=== PATIENT | male | born 1965 | race American Indian/Alaskan Native ===

== ENCOUNTER 2017-11-26 09:08 | Day surgery (SDC) | payer MEDICARE ==
[~2017-11-26 09:08] MED LIST: ANCEF/STERILE WATER 2 GM/20 ML IV NR; OMNIPAQUE (300 MG) IR ONE; WATER FOR IRRIG STERILE IR ONE
[2017-11-26] MEDS ORDERED: NACL BACTERIOSTATIC INFILTRATI ONE (09:58)
[2017-11-26] MEDS ORDERED: DIPRIVAN 10 MG/ML IV ONE (10:37)
[2017-11-26] MEDS ORDERED: XYLOCAINE MPF 2% ONE (10:39)
[2017-11-26] MEDS ORDERED: DILAUDID IV PRN (10:46)
--- NOTE | 2017-11-26 10:49 | Anesthesia Consultation ---
Anesthesia Consult and Med Hx Date of service: 11/26/17 - Airway Anesthetic Teeth Evaluation: Good Mental/Hyoid Distance: Adequate Mallampati Class: Class II Intubation Access Assessment: Probably Good - Pulmonary Exam CTA: Yes - Cardiac Exam Cardiac Exam: RRR - Pre-Operative Health Status ASA Pre-Surgery Classification: ASA2 Proposed Anesthetic Plan: General - Pulmonary Hx Smoking: Yes (STOPPED 09/30/17 , 1/2 PPD X 20 YRS) Hx Asthma: No SOB: No COPD: No Hx Pneumonia: No Hx Sleep Apnea: No (VIKY PRE SCREEN HIGH RISK.) - Cardiovascular System Hx Hypertension: Yes (X 3 YRS) Hx Coronary Artery Disease: Yes Hx Cardia Arrhythmia: Yes (A. Fib - resolved) Hx Valvular Heart Disease: Yes - Central Nervous System CVA: No Hx Psychiatric Problems: No - Gastrointestinal Hx Gastroesophageal Reflux Disease: No - Endocrine Hx Renal Disease: No (Penile implant) Hx End Stage Renal Disease: No Hx Insulin Dependent Diabetes: No Hx Non-Insulin Dependent Diabetes: No - Hematic Hx Anemia: No - Other Systems Hx Alcohol Use: Yes (OCCASIONAL) Hx Substance Use: No Hx Cancer: Yes (Prostate s/p seed implant and radiation) Hx Obesity: No
--- NOTE | 2017-11-26 10:50 | Anesthesia Day of Surgery ---
Anesthesia Day of Surgery - Day of Surgery Patient Examined: Yes Patient H&P Reviewed: Yes Patient is NPO: Yes Beta Blockers: Yes (carvedilol 4/9 am)
[2017-11-26] MEDS ORDERED: VERSED IV NR (11:00)
[2017-11-26] MEDS ORDERED: PEPCID IV NR (11:00)
[2017-11-26] MEDS ORDERED: OMNIPAQUE (300 MG) IR ONE (11:00)
[2017-11-26] MEDS ORDERED: NACL 0.9% 1000 ML 1,000 ML IV SCH ×2 (11:00)
[2017-11-26] MEDS ORDERED: WATER FOR IRRIG STERILE IR ONE (11:00)
[2017-11-26] MEDS ORDERED: DECADRON ONE (11:31)
[2017-11-26] MEDS ORDERED: ZOFRAN ONE (11:32)
[2017-11-26] MEDS ORDERED: SUBLIMAZE ONE (11:37)
--- NOTE | 2017-11-26 12:01 | Short Stay Summary ---
Short Stay Documentation Date of service: 11/26/17 - History H&P: obtained from office - Allergies and Medications Current Medications: Allergies No Known Allergies Allergy (Verified 05/25/14 11:48) Home Medications Medication Instructions Recorded Confirmed Last Taken Type Metoprolol 25 mg PO DAILY 12/15/14 11/26/17 11/26/17 08:00 History Active Medications Cefazolin Sodium (Ancef/Sterile Water 2 Gm/20 Ml) 2 gm IV PREOP NR Stop: 11/26/17 23:59 Famotidine (Pepcid) 20 mg IV PREOP NR Stop: 11/26/17 12:00 Last Admin: 11/26/17 10:55 Dose: 20 mg Hydromorphone HCl (Dilaudid) 0.25 mg IV Q10MIN PRN PRN Reason: Pain, Moderate (4-6) Stop: 11/26/17 12:00 Sodium Chloride (Nacl 0.9% 1000 Ml) 1,000 mls @ 100 mls/hr IV DIRECT ZACHARIAH Last Admin: 11/26/17 10:45 Dose: 100 mls/hr Midazolam HCl (Versed) 2 mg IV PREOP NR Stop: 11/26/17 23:59 Last Admin: 11/26/17 11:00 Dose: 2 mg - Brief post op/procedure progress note Date of procedure: 11/26/17 Pre-op diagnosis: bladder stones 4cm total Post-op diagnosis: same Procedure: cysto, rpg, ehl bladder stones Anesthesia: GETA Surgeon: RASHIDA BURDICK Pathology: list (give stones to pt) Condition: stable - Hospital course Hospital course: miles bain on chart--give stone to pt(tube) - Disposition Condition at discharge: Stable Disposition: DC-01 TO HOME OR SELFCARE Short Stay Discharge Plan Follow up with: SINDY THACKER MD [Primary Care Provider] - 7 Days
[2017-11-26] MEDS ORDERED: NORCO 5/325 PO PRN (12:30)
--- NOTE | 2017-11-26 12:30 | Operative Report ---
PREOPERATIVE DIAGNOSIS: Two large bladder stones, 2 cm right renal stone upper pole (staged). POSTOPERATIVE DIAGNOSIS: Two large bladder stones, 2 cm right renal stone upper pole (staged). PROCEDURE: Cystoscopy, bilateral retrograde pyelograms, electrohydraulic lithotripsy of bladder stones, (total volume 4 cm). SURGEON: Monico Guzman MD ANESTHESIA: General. ESTIMATED BLOOD LOSS: Minimal. FLUIDS: Crystalloid. COMPLICATIONS: No complications. INDICATIONS: This patient is a 52-year-old gentleman known to my service. History of prostate cancer, status post seed therapy as well as the erectile dysfunction, status post inflatable penile prosthesis, had gross hematuria, pelvic pain. CT of abdomen and pelvis revealed bladder stones as well as right renal stone, which is asymptomatic. He presents now for lithotripsy and possible ureteroscopy. DESCRIPTION OF PROCEDURE: The patient was taken to the operative suite, placed in a supine position. After adequate general anesthesia, placed in a dorsal lithotomy position, prepped and draped in a sterile fashion. Pancystourethroscopy was performed with a 22-Lebanese Storz cystoscope, no urethral abnormalities. His prostate had a high median lobe bladder obvious stones could be appreciated, no tumors. Both ureteral orifices in normal position. There was external compression from his penile prosthesis reservoir on the right side. Bilateral retrograde pyelograms were obtained with an 8-Lebanese Winn catheter and 8 mL of contrast. No filling defects or obstruction on the left. Right side, obvious 2 cm stone and the upper pole appears to be possible diverticulum. Using a 5-Lebanese EHL probe lithotripsy was performed. Stone was fragmented. [facility] evacuator was used to evacuate the fragments out. I did not do an ureteroscope on the right side, was concerned about damage to the reservoir. We will elect to do staged lithotripsy at a later date. Rectal exam was benign. He was extubated and taken to recovery room in stable condition. We will give him some of the fragments, go home on [employer] and [employer]. JOB# [id number] [facility]
[2017-11-26 14:50] VITALS: BP 126/80
--- NOTE | 2017-11-27 07:39 | Fluoroscopy Report ---
Retrograde pyelogram: Renal, bladder calculi The preliminary stone image demonstrates prostate brachy therapy seeds. There is a round opacity overlying the left kidney. Injection of contrast demonstrates 2 filling defects within the partially opacified urinary bladder. The contrast filled left urinary tract is generally unremarkable. Imaging of the right urinary tract demonstrates that the opacity initially imaged projects between the upper and middle pole calyces and appears to consist of numerous small calculi in a rounded configuration. Impressions: 1. Bladder calculi. 2. Probable gallstones.
== END 2017-11-26 14:35 | disposition home or self-care (01) ==
LOC: OR 09:08
PROVIDERS: ATTEND Urology
DX: N21.0 Calculus in bladder (principal); N20.0 Calculus of kidney; I10 Essential (primary) hypertension; I25.10 Atherosclerotic heart disease of native coronary artery without angina pectoris; I48.91 Unspecified atrial fibrillation; Z87.891 Personal history of nicotine dependence
CPT/HCPCS: 52318; 74420; A4217; C1726; C1758; C1769; J0690; J1100; J2250; J2405; J2704; J3010; J7030; Q9967

== ENCOUNTER 2017-12-27 08:16 | Day surgery (SDC) | payer MEDICARE ==
[~2017-12-27 08:16] MED LIST changes: -OMNIPAQUE (300 MG) IR ONE; -WATER FOR IRRIG STERILE IR ONE
[2017-12-27] MEDS ORDERED: NACL BACTERIOSTATIC INFILTRATI ONE (08:48)
--- NOTE | 2017-12-27 09:15 | Anesthesia Day of Surgery ---
Anesthesia Day of Surgery - Day of Surgery Patient Examined: Yes Patient H&P Reviewed: Yes Patient is NPO: Yes Beta Blockers: Yes
--- NOTE | 2017-12-27 09:15 | Anesthesia Consultation ---
Anesthesia Consult and Med Hx - Airway Anesthetic Teeth Evaluation: Good ROM Head & Neck: Adequate Mental/Hyoid Distance: Adequate Mallampati Class: Class II Intubation Access Assessment: Good - Pulmonary Exam CTA: Yes - Cardiac Exam Cardiac Exam: RRR - Pre-Operative Health Status ASA Pre-Surgery Classification: ASA2 Proposed Anesthetic Plan: General - Pulmonary Hx Smoking: Yes (STOPPED 09/30/17 , /2 PPD X 20 YRS) Hx Asthma: No SOB: No COPD: No Hx Pneumonia: No Hx Sleep Apnea: No (VIKY PRE SCREEN HIGH RISK.) - Cardiovascular System Hx Hypertension: Yes (X 3 YRS) Hx Coronary Artery Disease: Yes Hx Cardia Arrhythmia: Yes (A. Fib - resolved) Hx Valvular Heart Disease: Yes - Central Nervous System CVA: No Hx Psychiatric Problems: No - Gastrointestinal Hx Gastroesophageal Reflux Disease: No - Endocrine Hx End Stage Renal Disease: No Hx Insulin Dependent Diabetes: No Hx Non-Insulin Dependent Diabetes: No - Hematic Hx Anemia: No - Other Systems Hx Alcohol Use: Yes (OCCASIONAL) Hx Substance Use: No Hx Obesity: No
[2017-12-27] MEDS ORDERED: XYLOCAINE MPF 2% ONE (09:21)
[2017-12-27] MEDS ORDERED: DIPRIVAN 10 MG/ML IV ONE (09:21)
[2017-12-27] MEDS ORDERED: SUBLIMAZE ONE (09:21)
[2017-12-27] MEDS ORDERED: DILAUDID IV PRN (09:30)
[2017-12-27] MEDS ORDERED: LACTATED RINGERS 1,000 ML IV SCH (09:30)
[2017-12-27] MEDS ORDERED: SUBLIMAZE IV PRN (09:30)
[2017-12-27] MEDS ORDERED: ZOFRAN IV PRN (09:30)
[2017-12-27] MEDS ORDERED: ePHEDrine SULFATE ONE (09:46)
[2017-12-27] MEDS ORDERED: ZOFRAN ONE (10:12)
[2017-12-27] MEDS ORDERED: ROBINUL ONE (10:15)
--- NOTE | 2017-12-27 10:16 | Short Stay Summary ---
Short Stay Documentation Date of service: 12/27/17 - Allergies and Medications Current Medications: Allergies No Known Allergies Allergy (Verified 05/25/14 11:48) Home Medications Medication Instructions Recorded Confirmed Last Taken Type Metoprolol 25 mg PO DAILY 12/15/14 12/27/17 12/27/17 05:00 History Ciprofloxacin HCl [Cipro] 500 mg PO BID 12/19/17 12/27/17 12/26/17 History oxyCODONE /ACETAMINOPHEN [Percocet 1 tab PO Q6HR PRN 12/19/17 12/27/17 12/26/17 History 5/325] Active Medications Cefazolin Sodium (Ancef/Sterile Water 2 Gm/20 Ml) 2 gm IV PREOP NR Stop: 12/27/17 23:59 Fentanyl (Sublimaze) 50 mcg IV Q5MIN PRN PRN Reason: Pain , Severe (7-10) Stop: 12/27/17 13:30 Hydromorphone HCl (Dilaudid) 0.5 mg IV Q10MIN PRN PRN Reason: Pain, Moderate (4-6) Stop: 12/27/17 13:30 Lactated Ringer's (Lactated Ringers) 1,000 mls @ 42 mls/hr IV DIRECT ZACHARIAH Last Admin: 12/27/17 09:19 Dose: 42 mls/hr Ondansetron HCl (Zofran) 4 mg IV ONCE PRN PRN Reason: Nausea And Vomiting Stop: 12/27/17 15:00 - Brief post op/procedure progress note Date of procedure: 12/27/17 Pre-op diagnosis: rt 2cm stone Post-op diagnosis: same Procedure: rt eswl---staged Anesthesia: GETA Surgeon: RASHIDA BURDICK Condition: stable - Hospital course Hospital course: percocet 10 & post op info on chart - Disposition Condition at discharge: Stable Disposition: DC-01 TO HOME OR SELFCARE Short Stay Discharge Plan Follow up with: SINDY THACKER MD [Primary Care Provider] - 7 Days
--- NOTE | 2017-12-27 11:01 | Operative Report ---
PREOPERATIVE DIAGNOSIS: Right 2 cm stone. POSTOPERATIVE DIAGNOSIS: Right 2 cm stone. PROCEDURE: Right extracorporal shock wave lithotripsy (staged procedure). SURGEON: Monico uGzman MD ANESTHESIA: General. ESTIMATED BLOOD LOSS: Minimal. FLUIDS: Crystalloid. COMPLICATIONS: No complications. INDICATIONS: This 52-year-old gentleman known to my service for prostate cancer as well as stones, presents now for lithotripsy. Discussed more invasive procedures, he wants to proceed with lithotripsy. DESCRIPTION OF PROCEDURE: The patient was taken to the operative suite, placed in a supine position. After adequate general anesthesia, stone was localized in 2 planes using fluoroscopy. Extracorporal shock wave lithotripsy was administered in maximum kV of 5 and 2500 shocks. Renal pause after 200 shocks was performed. The patient required gating due to some ectopy throughout the case. He was stabilized after lithotripsy was done in a gated fashion. Adequate fragmentation could be appreciated, tolerated the procedure well, was extubated and taken to recovery room. He will go home on Percocet and follow up in the office. I suspect he will need a retreatment. JOB# [id number] [facility]
[2017-12-27 11:11] VITALS: BP 124/78
--- NOTE | 2017-12-27 17:30 | Post Anesthesia Evaluation ---
- Post Anesthesia Evaluation Patient Participated: Yes Airway Patent: Yes Stable Respiratory Function: Yes Nausea/Vomiting: No Temp > 96.8F: Yes Pain Manageable: Yes Adequeate Hydration: Yes Anesthesia Complications: No
== END 2017-12-27 12:00 | disposition home or self-care (01) ==
LOC: OR 08:16
PROVIDERS: ATTEND Urology
DX: N20.0 Calculus of kidney (principal); I10 Essential (primary) hypertension; I48.91 Unspecified atrial fibrillation; I25.10 Atherosclerotic heart disease of native coronary artery without angina pectoris; Z87.891 Personal history of nicotine dependence; Z85.46 Personal history of malignant neoplasm of prostate
CPT/HCPCS: 50590; J0690; J2405; J2704; J3010; J7120

== ENCOUNTER 2019-02-26 11:32 | Day surgery (SDC) | payer MEDICARE ==
[2019-02-24 09:57] LABS: Hematocrit 45.2 % (35.5-45.6); Hemoglobin 15.3 gm/dl (11.8-15.2); Mean Corpuscular HGB Conc 34 % (32-34); Mean Corpuscular Hemoglobin 31 pg (28-32); Mean Corpuscular Volume 92 fl (84-94); Platelet Count 219 K/mm3 (140-440); Red Blood Count 4.89 M/mm3 (3.65-5.03); Red Cell Distribution Width 13.9 % (13.2-15.2)
--- NOTE | 2019-02-24 10:00 | Anesthesia Consultation ---
Anesthesia Consult and Med Hx Date of service: 02/26/19 - Airway Anesthetic Teeth Evaluation: Chipped ROM Head & Neck: Adequate Mental/Hyoid Distance: Adequate Mallampati Class: Class II Intubation Access Assessment: Probably Good - Pre-Operative Health Status ASA Pre-Surgery Classification: ASA2 Proposed Anesthetic Plan: General - Pulmonary Hx Smoking: Yes (1/3 PPD X 20-25 YRS) Hx Asthma: No SOB: No COPD: No Hx Pneumonia: No Hx Sleep Apnea: No (VIKY PRE SCREEN HIGH RISK.) - Cardiovascular System Hx Hypertension: Yes (X 4 YRS) Hx Coronary Artery Disease: Yes (ETT [id number] negative for ischemia; +PACs) Hx Heart Attack/AMI: No (HX Cardiomyopathy LVEF 55% on 2012 cath) Hx Cardia Arrhythmia: Yes (A. Fib - resolved) Hx Valvular Heart Disease: Yes - Central Nervous System CVA: No Hx Psychiatric Problems: No - Gastrointestinal Hx Gastroesophageal Reflux Disease: No - Endocrine Hx Insulin Dependent Diabetes: No Hx Non-Insulin Dependent Diabetes: No - Hematic Hx Anemia: No - Other Systems Hx Alcohol Use: Yes (OCCASIONAL) Hx Substance Use: No Hx Obesity: No
[2019-02-24 10:14] LABS: Alanine Aminotransferase 13 units/L (7-56); Albumin 3.5 g/dL (3.9-5); BUN/Creatinine Ratio 14; Blood Urea Nitrogen 13 mg/dL (9-20); Calcium 8.5 mg/dL (8.4-10.2); Hemolysis Index 10
[2019-02-24 11:03] LABS: Total Cells Counted 100
[2019-02-24 11:04] LABS: Eosinophils % (Manual) 0 % (0.0-4.3); Platelet Estimate Consistent w Auto; RBC Morphology Normal
[2019-02-26] MEDS ORDERED: SUBLIMAZE ONE (12:29)
[2019-02-26] MEDS ORDERED: XYLOCAINE MPF 2% ONE (12:29)
[2019-02-26] MEDS ORDERED: DIPRIVAN 10 MG/ML IV ONE (12:30)
[2019-02-26] MEDS ORDERED: VERSED IV ONE (12:32)
[2019-02-26] MEDS ORDERED: LACTATED RINGERS 1,000 ML IV SCH (12:33)
[2019-02-26] MEDS ORDERED: .VANCOMYCIN VIAL ONE (12:56)
[2019-02-26] MEDS ORDERED: HYDROGEN PEROXIDE ONE (12:56)
[2019-02-26] MEDS ORDERED: NEOSPORIN GU IR ONE (12:56)
[2019-02-26] MEDS ORDERED: GENTAMICIN ONE (12:56)
[2019-02-26] MEDS ORDERED: NACL P/F VIAL (10 ML) 10 ML ONE (12:57)
[2019-02-26] MEDS ORDERED: DILAUDID IV PRN (13:05)
--- NOTE | 2019-02-26 13:07 | Anesthesia Day of Surgery ---
Anesthesia Day of Surgery - Day of Surgery Patient Examined: Yes Patient H&P Reviewed: Yes Patient is NPO: Yes
[2019-02-26] MEDS ORDERED: ZOFRAN ONE (13:55)
[2019-02-26] MEDS ORDERED: NACL 0.9% IR ONE (14:06)
[2019-02-26] MEDS ORDERED: NACL P/F VIAL (10 ML) INFILTRATI ONE (14:07)
[2019-02-26] MEDS ORDERED: VANCOMYCIN IV ONE (14:07)
--- NOTE | 2019-02-26 14:35 | Short Stay Summary ---
Short Stay Documentation Date of service: 02/26/19 - History H&P: obtained from office - Allergies and Medications Current Medications: Allergies No Known Allergies Allergy (Verified 05/25/14 11:48) Home Medications Medication Instructions Recorded Confirmed Last Taken Type Metoprolol 25 mg PO DAILY 12/15/14 02/19/19 02/25/19 History Aspirin [Adult Aspirin] 81 mg PO DAILY 02/19/19 02/26/19 2 Weeks Ago History ~02/12/19 AtorvaSTATin [Lipitor] 10 mg PO QHS 02/19/19 02/19/19 02/25/19 History Brimonidine Tartrate/Timolol 1 drop OP DAILY 02/19/19 02/19/19 02/25/19 History [Combigan 0.2%-0.5% Eye Drops] Carvedilol [Coreg] 3.125 mg PO BID 02/19/19 02/19/19 02/25/19 History Dorzolamide HCl/Pf [Dorzolamide 2% 1 drop OP DAILY 02/19/19 02/19/19 02/25/19 History Eye Drop] Tafluprost/Pf [Zioptan 0.0015% Eye 1 each OP DAILY 02/19/19 02/19/19 02/25/19 History Drops] Active Medications Cefazolin Sodium (Ancef/Sterile Water 2 Gm/20 Ml) 2 gm IV PREOP NR Stop: 02/26/19 23:59 Hydromorphone HCl (Dilaudid) 0.5 mg IV Q10MIN PRN PRN Reason: Pain , Severe (7-10) Stop: 02/26/19 23:59 Lactated Ringer's (Lactated Ringers) 1,000 mls @ 100 mls/hr IV DIRECT ZACHARIAH Last Admin: 02/26/19 12:50 Dose: 100 mls/hr Documented by: - Brief post op/procedure progress note Date of procedure: 02/26/19 Pre-op diagnosis: malposition reservior Post-op diagnosis: other (rt inguinal hernia) Procedure: rt inguinal hernia repair with mesh Anesthesia: LISAA Surgeon: RASHIDA BURDICK Estimated blood loss: minimal Pathology: list (sac) Specimen disposition: to lab Condition: stable - Hospital course Hospital course: taya & miles on chart - Disposition Condition at discharge: Stable Disposition: DC-01 TO HOME OR SELFCARE Short Stay Discharge Plan Follow up with: SINDY THACKER MD [Primary Care Provider] - 7 Days
[2019-02-26 15:57] VITALS: BP 124/78
[2019-02-26] MEDS ORDERED: NORCO 5/325 PO PRN (16:13)
--- NOTE | 2019-02-26 18:36 | Operative Report ---
PREOPERATIVE DIAGNOSIS: Malpositioned right reservoir (IPP reservoir in scrotum). POSTOPERATIVE DIAGNOSES: 1. Malpositioned right reservoir (IPP reservoir in scrotum). 2. Right inguinal hernia. PROCEDURE: Inguinal exploration, repair of right inguinal hernia with mesh. SURGEON: Monico Guzman MD RETURNED GOODS INSPECTOR: Rachelle Raymundo. ANESTHESIA: General. ESTIMATED BLOOD LOSS: Minimal. FLUIDS: Crystalloid. COMPLICATIONS: No complications. 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 The patient is doing well, has been doing well with his device presented to the office earlier this year with right groin mass. Exam was consistent with reservoir in the scrotum. Discussed options. He wanted to proceed with intervention. DESCRIPTION OF PROCEDURE: The patient was taken to the operative suite, placed in a supine position. After adequate general anesthesia, he was prepped and draped in a sterile fashion. Right inguinal incision was made with Bovie. Sharp dissection was taken out to the external oblique fascia, was opened. There was some tedious bleeding that was controlled without difficulty. The reservoir was in normal anatomic position; however, on exam at this point, direct hernia could be appreciated as well as an indirect hernia. Spermatic cord was identified with a Johny. The hernia sac was dissected out, excised and tied with 0 silk in interrupted fashion x 2. The direct hernia was then closed with keyhole mesh on the shelving edge of Poupart's ligament and conjoined tendon using 2-0 Ethibond in interrupted fashion. Copious irrigation was performed. Adequate hemostasis achieved. Cycled the penile prosthesis to make sure there was no injury to the device. It worked well. Damon catheter was placed during the procedure to drain the bladder and was removed at the end. The subcutaneous tissue was closed with 2-0 Vicryl in a running fashion. Skin was closed with rajat. A dressing was placed. The patient tolerated the procedure well and was extubated and taken to recovery room. He will go home on Cipro and Hixton. JOB# [id number] [facility]
== END 2019-02-26 17:35 | disposition home or self-care (01) ==
LOC: OR 11:32
PROVIDERS: ATTEND Urology
DX: K40.90 Unilateral inguinal hernia, without obstruction or gangrene, not specified as recurrent (principal); T83.420A Displacement of implanted penile prosthesis, initial encounter; I42.9 Cardiomyopathy, unspecified; I25.10 Atherosclerotic heart disease of native coronary artery without angina pectoris; E78.00 Pure hypercholesterolemia, unspecified; I10 Essential (primary) hypertension; Z79.899 Other long term (current) drug therapy; Z79.82 Long term (current) use of aspirin; Z98.49 Cataract extraction status, unspecified eye; Z85.46 Personal history of malignant neoplasm of prostate; Z87.442 Personal history of urinary calculi; Z80.1 Family history of malignant neoplasm of trachea, bronchus and lung; Z98.890 Other specified postprocedural states; Z72.89 Other problems related to lifestyle; Y83.8 Other surgical procedures as the cause of abnormal reaction of the patient, or of later complication, without mention of misadventure at the time of the procedure; Y92.89 Other specified places as the place of occurrence of the external cause
CPT/HCPCS: 36415; 49505; 80053; 85007; 85025; 88302; C1781; J0690; J1170; J2250; J2405; J2704; J3010; J3370; J7120; J1580